=== PATIENT | female | born 1975 | race African-American/Black ===

== ENCOUNTER 2017-08-14 20:26 | Emergency (ER) | payer OTHER ==
[2017-08-14 20:46] VITALS: TEMP 98.3; BMI 64.0
[2017-08-14 21:23] LABS: URINE APPEARANCE Clear; URINE BILIRUBIN Negative (NEGATIVE); URINE GLUCOSE (UA) Negative (NEGATIVE); URINE KETONE Negative (NEGATIVE); URINE LEUK ESTERASE Negative (NEGATIVE); URINE NITRITE Negative (NEGATIVE); URINE UROBILINOGEN 0.2 (0.2-1.0)
[2017-08-14 21:24] LABS: HCG,QUALITATIVE URINE POSITIVE
[2017-08-14 21:25] LABS: URINE BLOOD 3+ (NEGATIVE); URINE COLOR YELLOW; URINE PROTEIN 2+ (NEGATIVE)
[2017-08-14 21:38] LABS: EPI CELLS FEW /HPF; URINE BACTERIA FEW /hpf (NEGATIVE); URINE WBC 0-2 (0-5)
--- NOTE | 2017-08-14 21:56 | PDOC ---
History of Present Illness - General History Source: Patient, Old Records Exam Limitations: No Limitations - History of Present Illness Initial Comments: 08/14/17 22:02 The patient is a 42 year old female with a past medical history of HTN who presents to the Emergency Department with epigastric pain for 12 hours. The patient describes her pain as constant radiating throughout her abdomen. Patient endorses spotting. She reports that she has has been non-compliant with her hypertension medication and that she last took it "3 days ago". She denies any nausea, constipation, diarrhea, fever, hematuria, or dysuria. The patient reports that her last menstrual period was one month ago and was normal but notes that she had her period twice last month. 08/14/17 22:05 <Roman Lomax - Last Filed: 08/14/17 22:04> <Rhoda Alicia - Last Filed: 08/15/17 05:46> - General Chief Complaint: Blood Pressure Problem Stated Complaint: HTN Time Seen by Provider: 08/14/17 20:32 Past History <Roman Lomax - Last Filed: 08/14/17 22:04> - Past Medical History COPD: No HTN: Yes - Immunization History Immunization Up to Date: Yes - Suicide/Smoking/Psychosocial Hx Smoking History: Unknown if ever smoked Have you smoked in the past 12 months: No Number of Cigarettes Smoked Daily: 0 Information on smoking cessation initiated: No Hx Alcohol Use: No Drug/Substance Use Hx: No Substance Use Type: None <Rhoda Alicia - Last Filed: 08/15/17 05:46> - Past Medical History Allergies/Adverse Reactions: Allergies Allergy/AdvReac Type Severity Reaction Status Date / Time No Known Allergies Allergy Unverified 08/14/17 20:28 Home Medications: Ambulatory Orders Amlodipine/Atorvastatin [Amlodipine-Atorvast 5-20 mg] 1 each PO DAILY 08/14/17 Hyoscyamine Odt [Levsin Odt -] 0.125 mg PO BID PRN #10 tab.rapdis 08/15/17 Review of Systems - Review of Systems Able to Perform ROS?: Yes Comments:: 08/14/17 22:03 GENERAL/CONSTITUTIONAL: No fever or chills. No weakness. HEAD, EYES, EARS, NOSE AND THROAT: No change in vision. No ear pain or discharge. No sore throat. CARDIOVASCULAR: No chest pain or shortness of breath. RESPIRATORY: No cough, wheezing, or hemoptysis. GASTROINTESTINAL: No nausea, vomiting, diarrhea or constipation. GENITOURINARY: No dysuria, frequency, or change in urination. MUSCULOSKELETAL: No joint or muscle swelling or pain. No neck or back pain. SKIN: No rash NEUROLOGIC: No headache, vertigo, loss of consciousness, or change in strength/ sensation. ENDOCRINE: No increased thirst. No abnormal weight change. HEMATOLOGIC/LYMPHATIC: No anemia, easy bleeding, or history of blood clots. ALLERGIC/IMMUNOLOGIC: No hives or skin allergy. <Roman Lomax - Last Filed: 08/14/17 22:04> *Physical Exam - Vital Signs Last Vital Signs Temp Pulse Resp BP Pulse Ox 98.3 F 69 14 191/100 100 08/14/17 20:27 08/14/17 21:55 08/14/17 20:27 08/14/17 21:20 08/14/17 21:55 - Physical Exam Comments: 08/14/17 22:03 GENERAL: Awake, alert, and fully oriented, in no acute distress HEAD: No signs of trauma EYES: PERRLA, EOMI, sclera anicteric, conjunctiva clear ENT: Auricles normal inspection, hearing grossly normal, nares patent, oropharynx clear without exudates. Moist mucosa NECK: Normal ROM, supple, no lymphadenopathy, JVD, or masses LUNGS: Breath sounds equal, clear to auscultation bilaterally. No wheezes, and no crackles HEART: (+) Regular rate and rhythm, normal S1 and S2, 2/6 systolic ejection murmur, rubs or gallops ABDOMEN: (+) Soft, normoactive bowel sounds. No masses. Mild periumbilical and suprapubic tend without masses without involuntary guarding or rebound EXTREMITIES: Normal range of motion, no edema. No clubbing or cyanosis. No cords, erythema, or tenderness NEUROLOGICAL: Cranial nerves II through XII grossly intact. Normal speech, normal gait SKIN: Warm, Dry, normal turgor, no rashes or lesions noted. <Roman Lomax - Last Filed: 08/14/17 22:04> - Vital Signs Last Vital Signs Temp Pulse Resp BP Pulse Ox 98.3 F 69 14 191/100 100 08/14/17 20:27 08/14/17 20:27 08/14/17 20:27 08/14/17 21:20 08/14/17 20:27 <Rhoda Alicia - Last Filed: 08/15/17 05:46> ED Treatment Course - LABORATORY CBC & Chemistry Diagram: 08/14/17 22:00 08/14/17 22:03 - ADDITIONAL ORDERS Additional order review: Laboratory Results 08/14/17 21:20 Urine Color Yellow Urine Appearance Clear Urine pH 6.0 Ur Specific [place] 1.020 Urine Protein 2+ H Urine Glucose (UA) Negative Urine Ketones Negative Urine Blood 3+ H Urine Nitrite Negative Urine Bilirubin Negative Urine Urobilinogen 0.2 Ur Leukocyte Esterase Negative Urine RBC 2-5 Urine WBC 0-2 Ur Epithelial Cells Few Urine Bacteria Few Urine HCG, Qual Positive <Roman Lomax - Last Filed: 08/14/17 22:04> - LABORATORY CBC & Chemistry Diagram: 08/15/17 02:30 08/14/17 22:03 - ADDITIONAL ORDERS Additional order review: Laboratory Results 08/14/17 21:20 Urine Color Yellow Urine Appearance Clear Urine pH 6.0 Ur Specific [place] 1.020 Urine Protein 2+ H Urine Glucose (UA) Negative Urine Ketones Negative Urine Blood 3+ H Urine Nitrite Negative Urine Bilirubin Negative Urine Urobilinogen 0.2 Ur Leukocyte Esterase Negative Urine RBC 2-5 Urine WBC 0-2 Ur Epithelial Cells Few Urine Bacteria Few Urine HCG, Qual Positive <Rhoda Alicia - Last Filed: 08/15/17 05:46> Medical Decision Making - Medical Decision Making Documentation has been prepared under my direction and personally reviewed by me in its entirety. I attest that this documented accurately reflects all work, treatment, procedures and medical decision making performed by me. As noted above, this 42-year-old woman , LMP 2 PGU positive today presents with abdominal pain and vaginal spotting (also today). Exam as noted. Patient refused rectal exam (for evaluation of occult blood to rule out GI bleed ) Ultrasound notable for absence of intrauterine gestational sac. There is prominent right adnexal tissue and moderate volume of complex fluid in the pelvis suspicious for blood and possible ruptured ectopic . Study was read by both [facility] etiology staff and Imaging regional sales consultant. Study results were discussed with both radiologist who had comparable interpretations. 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 Repeat CBC/INR/type and screen will be drawn Meanwhile, patient had recurrence of abdominal pain and 2 mg morphine IV administered bimanual vaginal exam reveals moderate blood in vault; no cervical motion tenderness; no adnexal fullness or tenderness palpated. Patient has periumbilical tenderness with pain not worsened with movement of adnexa or uterus. Repeat vital signs at 3:15 AM: 176/96, 96% oxygenation on room air, heart rate 60, temperature 98.7 08/15/17 04:47 Patient evaluated by including bedside ultrasound. Her exam was similar without significant pelvic/adnexal tenderness. Also, minimal free fluid found in the abdomen/pelvis. In light of these findings and low beta hCG, rupturing ectopic is extremely unlikely. Patient will have repeat quantitative beta-hCG on August 16. <Rhoda Alicia - Last Filed: 08/15/17 05:46> *DC/Admit/Observation/Transfer - Attestations Scribe Attestion: 08/14/17 22:03 Documentation prepared by Roman Lomax, acting as district medical examiner for Rhoda Alicia MD. <Roman Lomax - Last Filed: 08/14/17 22:04> <Rhoda Alicia - Last Filed: 08/15/17 05:46> Diagnosis at time of Disposition: First trimester Abdominal pain Qualifiers: Abdominal location: periumbilical Qualified Code(s): R10.33 - Periumbilical pain - Discharge Dispostion Disposition: HOME Condition at time of disposition: Stable - Referrals - Patient Instructions Printed Discharge Instructions: DI for Abdominal Pain-Adult Additional Instructions: Follow-up on Saturday at [facility] ER as per Dr. Joy for 48 hour quantitative beta hCG If you have severe pain/vomiting/fever prior to this, follow-up with your general doctor or go to nearest ER Follow-up with your general doctor in any case within the next 5 days - Post Discharge Activity Forms/Work/School Notes: Back to Work
[2017-08-14] MEDS ORDERED: SODIUM CHLORIDE 1,000 ML IV STA (21:58)
[2017-08-14 22:14] LABS: HEMATOCRIT 36.6 % (32.4-45.2)
[2017-08-14 22:21] LABS: HEMOGLOBIN 12.2 GM/dl (10.7-15.3); MCH 25.4 pg (25.7-33.7); MCHC 33.2 g/dl (32.0-36.0); MEAN CELL VOLUME 76.4 fl (80-96); MEAN PLT VOLUME 8.8 fl (7.5-11.1); PLATELET COUNT 289 K/MM3 (134-434); RDW 14.6 % (11.6-15.6); WHITE BLOOD COUNT 8.1 K/mm3 (4.0-10.8)
[2017-08-14 22:22] LABS: ALBUMIN 3.7 g/dl (3.5-5.0); ALK PHOS 44 U/L (32-92); ANION GAP 5 (8-16); BLOOD UREA NITROGEN 13 mg/dl (7-18); CALCIUM 8.8 mg/dl (8.4-10.2); CHLORIDE 103 mmol/L (98-107); CO2 24 mmol/L (22-28); CREATININE 0.9 mg/dl (0.6-1.3); GLUCOSE,RANDOM 95 mg/dl (74-106); POTASSIUM 3.4 mmol/L (3.5-5.1); SGOT/AST 25 U/L (10-42); SGPT/ALT 18 U/L (10-40); SODIUM 132 mmol/L (136-145)
[2017-08-14 22:30] LABS: BILIRUBIN,TOTAL < 0.5 mg/dl (0.2-1.0)
[2017-08-14 22:57] LABS: PLATELET ESTIMATE ADEQUATE
[2017-08-14] MEDS ORDERED: ACETAMINOPHEN 1000 MG/100 ML VIAL (NON FORMULARY) IVPB ONE (23:46)
[2017-08-14] MEDS ORDERED: ACETAMINOPHEN INJECTION 100 ML IVPB ONE (23:49)
[2017-08-15] MEDS ORDERED: morphine CARPU-JECT 2 MG/1 ML DISP.SYRIN ONE (02:18)
[2017-08-15] MEDS ORDERED: morphine CARPU-JECT 2 MG/1 ML DISP.SYRIN IVPUSH ONE (02:19)
[2017-08-15 02:56] LABS: BASO % 0.6 % (0-2.0); EOS % 0.6 % (0-4.5); HEMATOCRIT 33.9 % (32.4-45.2); HEMOGLOBIN 11.4 GM/dL (10.7-15.3); LYMPH % 57.2 % (8-40); MCH 25.9 pg (25.7-33.7); MCHC 33.6 g/dl (32.0-36.0); MONO % 7.6 % (3.8-10.2); PLATELET COUNT 243 K/MM3 (134-434); RBC 4.41 M/mm3 (3.60-5.2); RDW 15.6 % (11.6-15.6); WHITE BLOOD COUNT 7.1 K/mm3 (4.0-10.0)
[2017-08-15 03:09] LABS: INR 1.06 (0.82-1.09)
[2017-08-15 04:35] VITALS: BP 143/91; PULSE 77
== END 2017-08-15 05:55 | disposition home or self-care (01) ==
LOC: FER 20:26
PROC: 3E0337Z Introduction of Electrolytic and Water Balance Substance into Peripheral Vein, Percutaneous Approach (ICD-10-PCS; principal; 2017-08-14)
DX: O26.891 Other specified pregnancy related conditions, first trimester (principal); Z3A.00 Weeks of gestation of pregnancy not specified; R10.33 Periumbilical pain
CPT/HCPCS: 36415; 76801-TC; 80053; 81003; 81015; 84702; 84703; 85025; 85610; 86850; 86900; 86901; 99284-25; J0131; J7030